=== PATIENT | female | born 1980 | race Caucasian/White ===

== ENCOUNTER 2016-07-22 22:07 | Emergency (ER) | payer MEDICAID ==
--- NOTE | 2016-07-22 22:30 | Emergency Department Record ---
History of Present Illness - General Chief complaint: ENT Stated complaint: COUGH,EAR ACHE,SORE THROAT Time Seen by Provider: 07/22/16 22:29 Source: Patient Mode of Arrival: Ambulatory Limitations: No limitations - History of Present Illness Initial comments: The patient is here due to a 2 day hx of a dry cough, mild ST, R ear pain, mild nasal congestion, and mild body aches. The patient denies any fever and did not get a flu shot this year. Her daughter tested pos for Inluenza B 4 days ago. MD complaint: Ear pain, Sore throat Onset/Timin -: Days(s) Location: R ear Severity scale (1-10): 5 Quality: Aching Improves with: NSAID Associated Symptoms: Cough, Sore throat, Tinnitus - Related Data Previous Rx's Medication Instructions Recorded Albuterol Sulfate [Proair Hfa] 2 puff IH QID PRN #1 inhaler 07/22/16 Fluticasone Propionate [Flonase] 2 spray EACH NARES DAILY #1 bottle 07/22/16 Prednisone [Prednisone 20Mg] 40 mg PO DAILY #6 tab 07/22/16 Allergies Allergy/AdvReac Type Severity Reaction Status Date / Time miconazole nitrate Allergy SWELLING Verified 02/20/16 01:56 [From Monistat 7] (GENERAL) Travel Screening - Travel/Exposure Within Last 30 Days Have you traveled within the last 30 days?: No - Travel/Exposure Within Last Year Have you traveled outside the [place] in the last year?: No - Additonal Travel Details Have you been exposed to anyone with a communicable illness?: No Review of Systems Constitutional: Reports: Malaise. Denies: Chills, Fever Eyes: Denies: Eye discharge ENT: Reports: Congestion, Throat pain Respiratory: Reports: Cough. Denies: Dyspnea Cardiovascular: Denies: Arrhythmia, Chest pain Past Medical History - SOCIAL HISTORY Smoking Status: Never smoker Alcohol Use: Occassional Drug Use: None - RESPIRATORY Hx Respiratory Disorders: Yes Comment:: seasonal allergies - CARDIOVASCULAR Hx Cardio Disorders: Yes Comment:: Mitral valve prolapse - NEURO Hx Neuro Disorders: No - GI Hx GI Disorders: No - Hx Genitourinary Disorders: Yes Comment:: fibroid tumor; R ovarian cyst; uterine polyp - ENDOCRINE Hx Endocrine Disorders: No - MUSCULOSKELETAL Hx Musculoskeletal Disorders: No - PSYCH Hx Psych Problems: No - HEMATOLOGY/ONCOLOGY Hx Hematology/Oncology Disorders: No Family Medical History Any Significant Family History?: No Hx Cancer: Mother, Grandparents *Cancer Comment: Mom w/Leukemia Hx Dementia: Grandparents Hx Diabetes: Grandparents Hx HTN: Grandparents Physical Exam - General General Appearance: Alert, Oriented x3, Cooperative, No acute distress - Head Head exam: Atraumatic, Normocephalic, Normal inspection - Eye Eye exam: Normal appearance, PERRL - ENT ENT exam: Normal exam, Mucous membranes moist, Normal external ear exam, TM's normal bilaterally. negative: Normal orophraynx Throat exam: Tonsillar erythema. negative: Normal inspection, Tonsillomegaly, Tonsillar exudate - Neck Neck exam: Normal inspection, Full ROM. negative: Lymphadenopathy, Meningismus , Tenderness - Respiratory Respiratory exam: Normal lung sounds bilaterally. negative: Respiratory distress - Cardiovascular Cardiovascular Exam: Regular rate, Normal rhythm, Normal heart sounds - GI/Abdominal GI/Abdominal exam: Soft, Normal bowel sounds. negative: Tenderness - Extremities Extremities exam: Normal inspection, Full ROM, Normal capillary refill. negative: Tenderness Course Vital Signs 07/22/16 22:11 Temperature 98.2 F Pulse Rate 83 Respiratory 16 Rate Blood Pressure 116/80 Pulse Ox 96 - Reevaluation(s) Reevaluation #1: I did discuss the issues with the patient. It clearly appears that she has a viral URI. We will start her on Prednisone along with an inhaller and Flonase. She is to F/U with her PCP early next week for recheck. I did discuss the possibility that she does have Influenza because of her close exposure but she is declining Tamiflu either way so there will be no change in treatment. 07/22/16 23:17 07/22/16 23:28 Medical Decision Making - Data Complexity MDM Data: Labs Ordered and/or Reviewed (Flu and Strep Neg.) Disposition Disposition: Discharge Clinical Impression: Viral upper respiratory illness Disposition: Home, Self-Care Condition: (1) Good Instructions: Upper Respiratory Infection, [employer] (GEN) Additional Instructions: Please continue the OTC cough medicine along with the Flonase, Albuterol and Prednisone. Please see your PCP on Tuesday if not better and return to the ER if worse. Prescriptions: Fluticasone Propionate [Flonase] 2 spray EACH NARES DAILY #1 bottle Prednisone [Prednisone 20Mg] 40 mg PO DAILY #6 tab Albuterol Sulfate [Proair Hfa] 2 puff IH QID PRN #1 inhaler PRN Reason: Cough And Difficulty Breathing Forms: Patient Portal Access Time of Disposition: 23:20
[2016-07-22 23:04] LABS: INFLUENZA A NEGATIVE (NEGATIVE); INFLUENZA B NEGATIVE (NEGATIVE); STREP A SCREEN NEGATIVE (NEGATIVE)
[2016-07-22] MEDS ORDERED: PREDNISONE 20 MG TAB PO ONE (23:18)
== END 2016-07-22 23:28 | disposition home or self-care (01) ==
LOC: ER 22:07
DX: J06.9 Acute upper respiratory infection, unspecified (principal); R05 Cough; J02.9 Acute pharyngitis, unspecified; H92.01 Otalgia, right ear
CPT/HCPCS: 87880; 87400; J7512; 99282